=== PATIENT | female | born 1945 | race Caucasian/White ===

== ENCOUNTER 2018-08-05 19:04 | Inpatient (IN) | payer MEDICARE, BC ==
[2018-08-05] MEDS ORDERED: Ondansetron ODT 4 MG TAB PO PRN (21:53)
[2018-08-05] MEDS ORDERED: Ondansetron PF 4 MG/2 ML Vial IVP PRN (21:53)
[2018-08-05] MEDS ORDERED: Acetaminophen 650 MG Suppository PR PRN (21:53)
[2018-08-05] MEDS ORDERED: Acetaminophen 325 MG TAB PO PRN (21:53)
[2018-08-05 22:20] VITALS: BMI 23.3
[2018-08-05 22:31] LABS: Hemoglobin 12.4 g/dL (12.0-16.0)
[2018-08-05] MEDS: Pantoprazole 80 MG in Sodium Chloride 0.9% 100 ML IVP SCH (22:49)
--- NOTE | 2018-08-05 23:05 | HP ---
PRIMARY CARE PHYSICIAN: Not reported. CODE STATUS: Full code. TIME OF EVALUATION: 09:10 p.m. CHIEF COMPLAINT FOR THIS PATIENT: Vomiting up blood. HISTORY OF PRESENT ILLNESS: This is a 73-year-old female patient with past medical history of hypertension, alcohol abuse who came to the hospital after having episodes of vomiting today which the patient described as significant amount of blood, multiple times with no clear triggers, no alleviating factors. She reported that her last drink was three days ago. Symptoms were reported as severe by the patient's . REVIEW OF SYSTEMS: CONSTITUTIONAL: No fever, chills, or generalized weakness. RESPIRATORY: No cough, sputum production, or shortness of breath. CARDIOVASCULAR: No chest pain or palpitation. GASTROINTESTINAL: The patient has bloody vomiting multiple times during today. See HPI for details, no abdominal pain. No black stools. RESIDENCE DIRECTOR: No dizziness, headache, or feeling lightheaded. GENITOURINARY: No burning on urination. EXTREMITIES: No leg swelling. All other systems were reviewed and negative except for the findings mentioned above. PAST MEDICAL HISTORY: As mentioned in the HPI. SURGICAL HISTORY: Right hip surgery. FAMILY HISTORY: Reviewed, noncontributory to current presentation. PSYCH HISTORY: Anxiety. SOCIAL HISTORY: The patient drinks usually five drinks per day, almost everyday. KNOWN ALLERGIES: To sulfa. REPORTED MEDICATIONS: Unknown. PHYSICAL EXAMINATION: VITAL SIGNS: Blood pressure 158/98 with heart rate 88, respiratory rate was 16, temperature 97.9, pain was 5/10, oxygen saturation was 96% on room air. GENERAL APPEARANCE: The patient is alert, oriented, not in acute distress. HEENT: Eyes; normal conjunctivae. Moist oral mucosa. Anicteric. No JVD. RESPIRATORY: Bilateral air entry. No rales. No wheezes. Symmetric expansion. CARDIOVASCULAR: Normal rate. Regular rhythm. No murmurs. No gallop. No edema. ABDOMEN: Soft. Normal bowel sounds. MUSCULOSKELETAL: Baseline range of motion and strength. No tenderness. SKIN: Warm, intact. No pallor. No rash. No redness. Peripheral pulses are present. Capillary refill seems to be intact. NEUROLOGIC: No evidence of any new focal weakness. Cranial nerves seems to be intact. PSYCHIATRIC: The patient is in good mood. No anxiety. Optimal judgment. LABORATORY DATA: Labs were reviewed. The patient has a sodium level 142, potassium 3.4, chloride level 103, CO2 of 20, anion gap 22, glucose 167, BUN 12.9, creatinine 0.8. BUN creatinine ratio is 16, GFR 83. LFTs were negative. White count 15.28, hemoglobin 14, MCV 97.8, platelet count 145. ASSESSMENT AND PLAN: The patient will be placed in the hospital with following medical problems: 1. Acute gastrointestinal bleeding. The patient had multiple bloody vomiting today, unclear etiology. The patient is alcoholic, no prior taking any NSAIDs, could be an episode of Rosana-Vera. We will call the GI. We will follow recommendations. Given history of alcoholism, the patient might be offered EGD by GI. The patient will remain n.p.o. for now. We will monitor hemoglobin, we will transfuse as needed, hydration for hemodynamic stability, Protonix. 2. Chronic history of alcohol abuse. Discussed with the patient and counseled to stop drinking. It does not seem that the patient is ready for it. 3. Uncontrolled hypertension with systolic blood pressure 158. Reconcile home medications, we will adjust treatment as needed. We will not treat aggressively since the patient is a GI bleeder. 4. DVT prophylaxis. The patient will be on SCDs. Job ID: [id number] [facility]
[2018-08-06 06:06] LABS: Anion Gap 14 mmol/L (10-20); BUN (Urea Nitrogen) 8 mg/dL (9.8-20.1); Calc. Creatinine Clearance 76 mL/min (70-130); Calcium 8.4 mg/dL (7.8-10.44); Carbon Dioxide 25 mmol/L (23-31); Chloride 99 mmol/L (98-107); Estimated GFR-MDRD 90; Glucose 110 mg/dL (83-110); Potassium 3.4 mmol/L (3.5-5.1); Sodium 135 mmol/L (136-145)
[2018-08-06 06:50] LABS: #Eosinphils 0.1 thou/uL (0.0-0.7); #Lymphocytes 1.2 thou/uL (1.20-3.40); #Monocytes 0.8 thou/uL (0.11-0.59); #Neutrophils 7.2 thou/uL (1.40-6.50); %Basophils 0.1 % (0.0-1.0); %Eosinophils 0.7 % (0.0-10.0); %Lymphocytes 12.8 % (21.0-51.0); %Monocytes 8.9 % (0.0-10.0); %Neutrophils 77.5 % (42.0-75.0); Hemoglobin 12.2 g/dL (12.0-16.0); MDiff Complete? YES; Macrocytosis MODERATE=16-30 cells (100X) (0-5/hpf); Mean Corpuscular HGB CONC 35.2 g/dL (32.0-36.0); Mean Corpuscular Hemoglobin 36.1 pg (27.0-31.0); Mean Platelet Volume 7.9 fL (7.4-10.4); Platelet Count 93 thou/uL (130-400); Platelet Morphology Comment Appears Decreased; RBC Distribution Width 12.4 % (11.5-14.5); Red Blood Cell (RBC) Count 3.38 mill/uL (4.20-5.40); White Blood Cell (WBC) Count 9.3 thou/uL (4.8-10.8)
[2018-08-06] MEDS: Pantoprazole 80 MG in Sodium Chloride 0.9% 100 ML IVP SCH ×2 (08:14→18:25)
[2018-08-06] MEDS ORDERED: Loratadine 10 MG TAB PO PRN (08:20)
[2018-08-06] MEDS ORDERED: Senokot S 8.6-50 MG TAB PO PRN (08:20)
[2018-08-06] MEDS ORDERED: Cepastat Lozenges 1 LOZ PO PRN (08:20)
[2018-08-06] MEDS ORDERED: Zolpidem Tartrate 5 MG TAB PO PRN (08:20)
[2018-08-06] MEDS ORDERED: Diabetic Tussin 200 MG/10 ML UDCUP PO PRN (08:20)
[2018-08-06] MEDS ORDERED: Sodium Chloride 0.65% Nasal 44 ML BOT EA NARE PRN (08:20)
[2018-08-06] MEDS ORDERED: HYDROcodone/Acetaminophen 5/325 mg Tablet PO PRN (08:20)
[2018-08-06] MEDS ORDERED: Loperamide HCl 2 MG CAP PO PRN (08:20)
[2018-08-06] MEDS ORDERED: Bisacodyl 5 MG TAB PO PRN (08:20)
[2018-08-06] MEDS ORDERED: hydrALAZINE 20 MG/ML VIAL SLOW IVP PRN (08:20)
[2018-08-06] MEDS ORDERED: Multivitamins, Adult 10 ML, Folic Acid 1 MG, Thiamine HCl 100 MG in Dextrose 5 %-0.45 %... IV SCH (09:00)
--- NOTE | 2018-08-06 09:22 | ULT ---
Gallbladder ultrasound: Multiple grayscale images of right upper quadrant obtained according to protocol. INDICATION: Pain FINDINGS: Liver: Normal Gallbladder: Low-level echoes indicate gallbladder sludge Gallbladder wall: Normal. Leon's Sign: Negative Common bile duct is normal. Ascites: None IMPRESSION: Gallbladder sludge.
[2018-08-06 09:59] LABS: Hemoglobin 12.9 g/dL (12.0-16.0)
--- NOTE | 2018-08-06 11:03 | PDOC.PN ---
- Subjective Encounter Start Date: 08/06/18 Encounter Start Time: 15:00 -: old records requested/rev pt was taking diclofenac daily for about 1 year, denies any further episodes of vomiting Patient seen and examined. No new complaints. No overnight events - Objective Resuscitation Status - Order Detail: 08/05/18 21:53 Resuscitation Status Routine Resuscitation Status: FULL: Full Resuscitation MAR Reviewed: Yes Vital Signs & Weight: Vital Signs (12 hours) Temp Pulse Resp BP Pulse Ox 08/06/18 08:00 95 08/06/18 07:26 98.3 F 76 18 145/77 H 95 08/06/18 04:00 98.3 F 77 18 145/74 H 96 08/06/18 00:00 98.5 F 88 18 145/79 H 93 L 08/05/18 23:20 94 L Weight Weight 136 lb 4.8 oz I&O: 08/05/18 08/06/18 08/07/18 06:59 06:59 06:59 Intake Total 130 Balance 130 Result Diagrams: 08/06/18 15:28 08/06/18 05:06 Radiology Reviewed by me: Yes (US abdomen gall bladder sluge) Phys Exam - Physical Examination Constitutional: NAD HEENT: PERRLA, moist MMs, sclera anicteric Neck: no JVD, supple Respiratory: no wheezing, no rales, no rhonchi Cardiovascular: RRR, no significant murmur, no rub Gastrointestinal: soft, non-tender, no distention, positive bowel sounds Musculoskeletal: no edema, pulses present Neurological: non-focal, normal sensation, moves all 4 limbs Lymphatic: no nodes Psychiatric: normal affect, A&O x 3 Skin: no rash, normal turgor Dx/Plan (1) Acute GI bleeding Code(s): K92.2 - GASTROINTESTINAL HEMORRHAGE, UNSPECIFIED Status: Acute (2) Alcohol abuse Code(s): F10.10 - ALCOHOL ABUSE, UNCOMPLICATED Status: Chronic (3) Anxiety and depression Code(s): F41.9 - ANXIETY DISORDER, UNSPECIFIED; F32.9 - MAJOR DEPRESSIVE DISORDER, SINGLE EPISODE, UNSPECIFIED Status: Chronic (4) Hypertension Code(s): I10 - ESSENTIAL (PRIMARY) HYPERTENSION Status: Chronic (5) Macrocytosis Code(s): D75.89 - OTHER SPECIFIED DISEASES OF BLOOD AND BLOOD-FORMING ORGANS Status: Chronic (6) Thrombocytopenia Code(s): D69.6 - THROMBOCYTOPENIA, UNSPECIFIED Status: Chronic - Plan cont current plan of care, plan discussed w/ family * continue protonix drip * start banana bag * GI consulted * home meds reconciled * get US RUQ * medication reviewed as below * symptomatic treatment. Review of Systems - Review of Systems ENT: negative: Ear Pain, Ear Discharge, Nose Pain, Nose Discharge, Nose Congestion, Mouth Pain, Mouth Swelling, Throat Pain, Throat Swelling, Other Respiratory: negative: Cough, Dry, Shortness of Breath, Hemoptysis, SOB with Excertion, Pleuritic Pain, Sputum, Wheezing Cardiovascular: negative: chest pain, palpitations, orthopnea, paroxysmal nocturnal dyspnea, edema, light headedness, other Gastrointestinal: negative: Nausea, Vomiting, Abdominal Pain, Diarrhea, Constipation, Melena, Hematochezia, Other Genitourinary: negative: Dysuria, Frequency, Incontinence, Hematuria, Retention , Other Musculoskeletal: negative: Neck Pain, Shoulder Pain, Arm Pain, Back Pain, Hand Pain, Leg Pain, Foot Pain, Other - Medications/Allergies Allergies/Adverse Reactions: Allergies Allergy/AdvReac Type Severity Reaction Status Date / Time Sulfa (Sulfonamide Allergy Unverified 08/05/18 22:00 Antibiotics) Medications: Current Medications Acetaminophen (Tylenol) 650 mg PO Q4H PRN PRN Reason: Headache/Fever/Mild Pain (1-3) Acetaminophen (Tylenol) 650 mg [place] Q4H PRN PRN Reason: Headache/Fever/Mild Pain (1-3) Hydrocodone Bitart/Acetaminophen ([place] 5/325) 1 tab PO Q4H PRN PRN Reason: Moderate Pain (4-6) Bisacodyl (Dulcolax) 10 mg PO DAILYPRN PRN PRN Reason: Constipation Guaifenesin (Robitussin Sf) 200 mg PO Q4H PRN PRN Reason: Cough Hydralazine HCl (Apresoline) 10 mg SLOW IVP Q4H PRN PRN Reason: SBP > 180 and HR < 70 Pantoprazole Sodium 80 mg/ (Sodium Chloride) 100 mls @ 10 mls/hr IVP INF [facility] Last Admin: 08/06/18 08:14 Dose: 100 mls Multivitamins 10 ml/ Folic Acid 1 mg/ Thiamine HCl 100 mg / Dextrose/Sodium Chloride 1,011.2 mls @ 125 mls/hr IV Q24HR [facility] Loperamide HCl (Imodium) 2 mg PO PRN PRN PRN Reason: Diarrhea/Loose Stools Loratadine (Claritin) 10 mg PO DAILYPRN PRN PRN Reason: Sinus Symptoms Ondansetron HCl (Zofran Odt) 4 mg PO Q6H PRN PRN Reason: Nausea/Vomiting Ondansetron HCl (Zofran) 4 mg IVP Q6H PRN PRN Reason: Nausea/Vomiting Senna/Docusate Sodium (Senokot S) 2 tab PO BID PRN PRN Reason: Constipation Sertraline HCl (Zoloft) 25 mg PO HS [facility] Sodium Chloride ([place] Nasal [place] 0.65%) 0 ml EA NARE QIDPRN PRN PRN Reason: Nasal Congestion Sodium Chloride (Flush - Normal Saline) 10 ml IVF Q12HR [facility] Sodium Chloride (Flush - Normal Saline) 10 ml IVF PRN PRN PRN Reason: Saline Flush Throat Lozenges (Cepastat Lozenges) 1 dean PO Q2H PRN PRN Reason: Sore Throat Zolpidem Tartrate (Ambien) 5 mg PO HSPRN PRN PRN Reason: Insomnia
[2018-08-06 15:42] LABS: Hemoglobin 12.5 g/dL (12.0-16.0)
[2018-08-06] MEDS ORDERED: Ketamine 50 MG/ML (10ML VIAL) ONE (20:16)
[2018-08-06] MEDS ORDERED: Metoprolol Tartrate 5 MG/5 ML VIAL ONE (20:49)
[2018-08-06] MEDS ORDERED: Promethazine HCl 25 MG/ML VIAL IM PRN (20:51)
[2018-08-06] MEDS ORDERED: Ondansetron HCl/PF 4 MG/2 ML Vial IVP PRN (20:51)
[2018-08-06] MEDS ORDERED: Promethazine HCl 25 MG/ML VIAL SLOW IVP PRN (20:51)
--- NOTE | 2018-08-07 01:29 | OP ---
DATE OF PROCEDURE: 08/06/2018 OPERATIVE PROCEDURE: 1. Esophagogastroduodenoscopy with biopsy. 2. Injection of epinephrine over the biopsy site to stop the bleeding. PREOPERATIVE DIAGNOSES: Hematemesis, upper gastrointestinal bleeding. POSTOPERATIVE DIAGNOSES: 1. Hiatus hernia. 2. Ulcer and possibly a tear of the GE junction indicative of active bleeding seen. 3. Gastric mucosa, diffuse hyperemia, edematous. 4. Small ulcer in the bulb. DESCRIPTION OF PROCEDURE: The patient was placed on her left lateral position and was given sedation by Anesthesia Department. A Pentax video gastroscope under direct vision passed down the oropharynx, past the GE junction into the stomach. The esophageal mucosa appeared normal. The patient had a small hiatus hernia. At the GE junction, on the gastric side, the patient had ulceration and possibly what appeared to be a tear. There was no active bleeding seen. Fundus and cardia, no pathology. The gastric antrum and body shows mucosal hyperemia and edema. Biopsy was obtained of the gastric antrum and gastric body. Interestingly, after the biopsy, the biopsy site over the gastric body started having persistent oozing of blood. Water was irrigated and washed out; however, the bleeding continued. Because of the above reason, injection of epinephrine 2 mL was done at the biopsy site with control of bleeding. The gastric incisura, no pathology seen. The duodenal bulb shows small ulceration. The descending duodenum, no pathology seen. The stomach was decompressed and the scope was removed. RECOMMENDATIONS: 1. Clear liquid diet. 2. Follow up H and H. 3. Continue PPI. 4. If she has no recurrence of bleeding, consider advancing her diet tomorrow. Job ID: [id number]
[2018-08-07 06:01] LABS: #Eosinphils 0.1 thou/uL (0.0-0.7); #Lymphocytes 1.5 thou/uL (1.20-3.40); #Monocytes 0.8 thou/uL (0.11-0.59); #Neutrophils 5.7 thou/uL (1.40-6.50); %Basophils 0.2 % (0.0-1.0); %Eosinophils 0.9 % (0.0-10.0); %Lymphocytes 18.5 % (21.0-51.0); %Monocytes 9.9 % (0.0-10.0); %Neutrophils 70.5 % (42.0-75.0); Hemoglobin 12.6 g/dL (12.0-16.0); Mean Corpuscular HGB CONC 35.8 g/dL (32.0-36.0); Mean Corpuscular Hemoglobin 36.6 pg (27.0-31.0); Mean Platelet Volume 8.1 fL (7.4-10.4); Platelet Count 98 thou/uL (130-400); RBC Distribution Width 12.1 % (11.5-14.5); Red Blood Cell (RBC) Count 3.45 mill/uL (4.20-5.40); White Blood Cell (WBC) Count 8.1 thou/uL (4.8-10.8)
[2018-08-07 06:16] LABS: ALT (SGPT) 20 U/L (8-55); AST (SGOT) 51 U/L (5-34); Alkaline Phosphatase 92 U/L (40-150); Bilirubin, Direct 1.2 mg/dL (0.1-0.3); Bilirubin, Total 2.6 mg/dL (0.2-1.2); Protein, Total 7.1 g/dL (6.0-8.3)
[2018-08-07 06:17] LABS: ALT (SGPT) 20 U/L (8-55); AST (SGOT) 50 U/L (5-34); Alkaline Phosphatase 92 U/L (40-150); Anion Gap 15 mmol/L (10-20); BUN (Urea Nitrogen) 7 mg/dL (9.8-20.1); Bilirubin, Total 2.6 mg/dL (0.2-1.2); Calc. Creatinine Clearance 71 mL/min (70-130); Calcium 8.7 mg/dL (7.8-10.44); Carbon Dioxide 26 mmol/L (23-31); Chloride 99 mmol/L (98-107); Estimated GFR-MDRD 82; Glucose 89 mg/dL (83-110); Sodium 137 mmol/L (136-145)
[2018-08-07 06:23] LABS: Potassium 2.8 mmol/L (3.5-5.1)
[2018-08-07] MEDS ORDERED: Potassium Chloride 20 MEQ TAB PO SCH ×3 (06:45→10:45)
[2018-08-07] MEDS: Pantoprazole 80 MG in Sodium Chloride 0.9% 100 ML IVP SCH (07:38)
[2018-08-07 08:10] LABS: Magnesium 1.1 mg/dL (1.6-2.6)
[2018-08-07] MEDS: Thiamine 100 MG TAB PO SCH (08:40)
[2018-08-07] MEDS: Cyanocobalamin (Vitamin B-12) 1,000 MCG TAB PO SCH (08:40)
[2018-08-07] MEDS: Folic Acid 1 MG TAB PO SCH (08:40)
--- NOTE | 2018-08-07 10:24 | PRG ---
DATE OF SERVICE: 08/07/2018 SUBJECTIVE: This is a 73-year-old female with history of alcohol abuse, hospitalized 2 days ago with hematemesis. She underwent EGD last night and was found to have hiatus hernia, and also at GE junction, possible Rosana-Vera tear and an ulcer in the duodenal bulb. The patient done well overnight. She is tolerating clear liquid diet. No abdominal pain. No nausea or vomiting. Blood count has actually went stable. LABORATORY DATA: Shows WBC 8100, hemoglobin is 12.6, hematocrit is 35.3, MCV is 102. She offers no complaints. PHYSICAL EXAMINATION: VITAL SIGNS: Afebrile. Pulse is 91, blood pressure is 150/88. CARDIOVASCULAR: First and second heart sounds heard. LUNGS: Clear to auscultation. ABDOMEN: Soft. No organomegaly. No tenderness. No masses. RECOMMENDATIONS: 1. Advance regular diet. 2. If she does well, consider discharge home tomorrow on Protonix. The patient will come back to me as outpatient for a colonoscopy in the next few weeks. She is also advised strongly to stop drinking completely. Job ID: [id number]
[2018-08-07] MEDS ORDERED: Magnesium Sulfate 4 GM in Sodium Chloride 0.9% 250 ML 250 ML IVPB SCH (11:00)
[2018-08-07] MEDS ORDERED: Potassium Phosphate 15 MMOL in Sodium Chloride 0.9% 250 ML 250 ML IVPB SCH (11:00)
--- NOTE | 2018-08-07 11:05 | PDOC.PN ---
- Subjective Encounter Start Date: 08/07/18 Encounter Start Time: 09:45 Patient seen and examined. No new complaints. No overnight events - Objective Resuscitation Status - Order Detail: 08/05/18 21:53 Resuscitation Status Routine Resuscitation Status: FULL: Full Resuscitation MAR Reviewed: Yes Vital Signs & Weight: Vital Signs (12 hours) Temp Pulse Resp BP Pulse Ox 08/07/18 07:08 98.6 F 91 16 150/88 H 95 08/07/18 04:00 98.8 F 93 20 126/80 99 08/07/18 01:14 99.1 F 83 20 127/73 93 L Weight Weight 136 lb 4.8 oz I&O: 08/06/18 08/07/18 08/08/18 06:59 06:59 06:59 Intake Total 130 Balance 130 Result Diagrams: 08/07/18 05:17 08/07/18 05:17 Phys Exam - Physical Examination Constitutional: NAD HEENT: PERRLA, moist MMs, sclera anicteric Neck: no JVD, supple Respiratory: no wheezing, no rales, no rhonchi Cardiovascular: RRR, no significant murmur, no rub Gastrointestinal: soft, non-tender, no distention, positive bowel sounds Musculoskeletal: no edema, pulses present Neurological: non-focal, normal sensation, moves all 4 limbs Lymphatic: no nodes Psychiatric: normal affect, A&O x 3 Skin: no rash, normal turgor Dx/Plan (1) Acute GI bleeding Code(s): K92.2 - GASTROINTESTINAL HEMORRHAGE, UNSPECIFIED Status: Acute (2) Alcohol abuse Code(s): F10.10 - ALCOHOL ABUSE, UNCOMPLICATED Status: Chronic (3) Anxiety and depression Code(s): F41.9 - ANXIETY DISORDER, UNSPECIFIED; F32.9 - MAJOR DEPRESSIVE DISORDER, SINGLE EPISODE, UNSPECIFIED Status: Chronic (4) Hypertension Code(s): I10 - ESSENTIAL (PRIMARY) HYPERTENSION Status: Chronic (5) Macrocytosis Code(s): D75.89 - OTHER SPECIFIED DISEASES OF BLOOD AND BLOOD-FORMING ORGANS Status: Chronic (6) Thrombocytopenia Code(s): D69.6 - THROMBOCYTOPENIA, UNSPECIFIED Status: Chronic (7) Hypophosphatemia Code(s): E83.39 - OTHER DISORDERS OF PHOSPHORUS METABOLISM Status: Acute (8) Hypomagnesemia Code(s): E83.42 - HYPOMAGNESEMIA Status: Acute (9) Hypokalemia Code(s): E87.6 - HYPOKALEMIA Status: Acute - Plan cont current plan of care * continue Protonix * advance diet * replace potassium phosphate, magnesium sulfate and potassium chloride * repeat labs tomorrow * plan for discharge tomorrow * medication reviewed as below * symptomatic treatment. * advised to avoid NSAIDs and alcohol Review of Systems - Review of Systems ENT: negative: Ear Pain, Ear Discharge, Nose Pain, Nose Discharge, Nose Congestion, Mouth Pain, Mouth Swelling, Throat Pain, Throat Swelling, Other Respiratory: negative: Cough, Dry, Shortness of Breath, Hemoptysis, SOB with Excertion, Pleuritic Pain, Sputum, Wheezing Cardiovascular: negative: chest pain, palpitations, orthopnea, paroxysmal nocturnal dyspnea, edema, light headedness, other Gastrointestinal: negative: Nausea, Vomiting, Abdominal Pain, Diarrhea, Constipation, Melena, Hematochezia, Other Genitourinary: negative: Dysuria, Frequency, Incontinence, Hematuria, Retention , Other Musculoskeletal: negative: Neck Pain, Shoulder Pain, Arm Pain, Back Pain, Hand Pain, Leg Pain, Foot Pain, Other Skin: negative: Rash, Lesions, Pato, Bruising, Other - Medications/Allergies Allergies/Adverse Reactions: Allergies Allergy/AdvReac Type Severity Reaction Status Date / Time Sulfa (Sulfonamide Allergy Unverified 08/05/18 22:00 Antibiotics) Medications: Current Medications Acetaminophen (Tylenol) 650 mg PO Q4H PRN PRN Reason: Headache/Fever/Mild Pain (1-3) Acetaminophen (Tylenol) 650 mg [place] Q4H PRN PRN Reason: Headache/Fever/Mild Pain (1-3) Hydrocodone Bitart/Acetaminophen ([place] 5/325) 1 tab PO Q4H PRN PRN Reason: Moderate Pain (4-6) Bisacodyl (Dulcolax) 10 mg PO DAILYPRN PRN PRN Reason: Constipation Cyanocobalamin (Vitamin B-12) 1,000 mcg PO DAILY [facility] Last Admin: 08/07/18 08:40 Dose: 1,000 mcg Folic Acid (Folvite) 1 mg PO DAILY [facility] Last Admin: 08/07/18 08:40 Dose: 1 mg Guaifenesin (Robitussin Sf) 200 mg PO Q4H PRN PRN Reason: Cough Hydralazine HCl (Apresoline) 10 mg SLOW IVP Q4H PRN PRN Reason: SBP > 180 and HR < 70 Pantoprazole Sodium 80 mg/ (Sodium Chloride) 100 mls @ 10 mls/hr IVP INF [facility] Last Admin: 08/07/18 07:38 Dose: 100 mls Magnesium Sulfate 4 gm/ Sodium (Chloride) 258 mls @ 86 mls/hr IVPB 1100 [facility] Stop: 08/07/18 13:59 Potassium Phosphate 15 mmol/ (Sodium Chloride) 255 mls @ 62.5 mls/hr IVPB 1100 [facility] Loperamide HCl (Imodium) 2 mg PO PRN PRN PRN Reason: Diarrhea/Loose Stools Loratadine (Claritin) 10 mg PO DAILYPRN PRN PRN Reason: Sinus Symptoms Ondansetron HCl (Zofran Odt) 4 mg PO Q6H PRN PRN Reason: Nausea/Vomiting Ondansetron HCl (Zofran) 4 mg IVP Q6H PRN PRN Reason: Nausea/Vomiting Potassium Chloride ([place]) 40 meq PO 0945 [facility] Stop: 08/07/18 11:45 Last Admin: 08/07/18 08:39 Dose: 40 meq Senna/Docusate Sodium (Senokot S) 2 tab PO BID PRN PRN Reason: Constipation Sertraline HCl (Zoloft) 25 mg PO HS [facility] Last Admin: 08/06/18 22:35 Dose: 25 mg Sodium Chloride ([place] Nasal [place] 0.65%) 0 ml EA NARE QIDPRN PRN PRN Reason: Nasal Congestion Sodium Chloride (Flush - Normal Saline) 10 ml IVF Q12HR [facility] Last Admin: 08/07/18 08:34 Dose: Not Given Sodium Chloride (Flush - Normal Saline) 10 ml IVF PRN PRN PRN Reason: Saline Flush Thiamine HCl (Thiamine) 100 mg PO DAILY [facility] Last Admin: 08/07/18 08:40 Dose: 100 mg Throat Lozenges (Cepastat Lozenges) 1 dean PO Q2H PRN PRN Reason: Sore Throat Zolpidem Tartrate (Ambien) 5 mg PO HSPRN PRN PRN Reason: Insomnia
[2018-08-08 05:45] LABS: #Eosinphils 0.2 thou/uL (0.0-0.7); #Lymphocytes 1.5 thou/uL (1.20-3.40); #Monocytes 0.7 thou/uL (0.11-0.59); #Neutrophils 3.2 thou/uL (1.40-6.50); %Basophils 0.6 % (0.0-1.0); %Eosinophils 3.4 % (0.0-10.0); %Lymphocytes 27.3 % (21.0-51.0); %Monocytes 11.9 % (0.0-10.0); %Neutrophils 56.8 % (42.0-75.0); Hemoglobin 12.9 g/dL (12.0-16.0); Mean Corpuscular HGB CONC 36.3 g/dL (32.0-36.0); Mean Corpuscular Hemoglobin 37.5 pg (27.0-31.0); Mean Platelet Volume 8.1 fL (7.4-10.4); Platelet Count 91 thou/uL (130-400); RBC Distribution Width 12.4 % (11.5-14.5); Red Blood Cell (RBC) Count 3.45 mill/uL (4.20-5.40); White Blood Cell (WBC) Count 5.7 thou/uL (4.8-10.8)
[2018-08-08 06:08] LABS: Anion Gap 13 mmol/L (10-20); BUN (Urea Nitrogen) 9 mg/dL (9.8-20.1); Calc. Creatinine Clearance 68 mL/min (70-130); Calcium 8.9 mg/dL (7.8-10.44); Carbon Dioxide 27 mmol/L (23-31); Chloride 102 mmol/L (98-107); Estimated GFR-MDRD 78; Glucose 97 mg/dL (83-110); Magnesium 2.1 mg/dL (1.6-2.6); Phosphorus 2.7 mg/dL (2.3-4.7); Potassium 3.6 mmol/L (3.5-5.1); Sodium 138 mmol/L (136-145)
[2018-08-08] MEDS: Thiamine 100 MG TAB PO SCH (08:43)
[2018-08-08] MEDS: Folic Acid 1 MG TAB PO SCH (08:43)
[2018-08-08] MEDS: Cyanocobalamin (Vitamin B-12) 1,000 MCG TAB PO SCH (08:44)
[2018-08-08 10:26] VITALS: BP 112/73; TEMP 98.3
--- NOTE | 2018-08-08 11:11 | DIS ---
DATE OF ADMISSION: 08/05/2018 DATE OF DISCHARGE: 08/08/2018 PRIMARY CARE PHYSICIAN: Dr. Leila Schmidt. DISCHARGE DISPOSITION: Home. PRIMARY DISCHARGE DIAGNOSES: 1. Acute upper gastrointestinal bleeding. 2. Hypokalemia. 3. Hypomagnesemia. 4. Hypophosphatemia. 5. Peptic ulcer disease. SECONDARY DISCHARGE DIAGNOSES: Thrombocytopenia, macrocytosis, hypertension, anxiety and depression, alcohol abuse. PRIMARY PROCEDURE/OPERATION: Upper endoscopy was performed by Dr. Rivers and found with ulcer at the gastroesophageal junction, gastritis and duodenal bulb ulcer. RADIOLOGICAL INVESTIGATION: Abdominal ultrasound showed unremarkable finding. SIGNIFICANT LABORATORY DATA: Hemoglobin 12.9, platelet 91, WBC 5.7. Sodium 138, creatinine 0.73. Electrolytes normal. DISCHARGE MEDICATIONS: 1. Protonix 40 mg p.o. daily. 2. Zoloft 25 mg p.o. at bedtime. 3. Vitamin B12 1000 mcg p.o. daily. 4. Folic acid 1 mg p.o. daily. 5. Thiamine 100 mg p.o. daily. CONTRAINDICATION: None. CODE STATUS: Full code. INPATIENT WHITE METAL CORROSION PROOFER: Dr. Rivers. TEST RESULTS PENDING ON DISCHARGE: None. ALLERGIES: SULFA DRUGS. DISCHARGE PLAN: Post hospital, the patient will follow up with primary care physician in one week. HOSPITAL COURSE: A 73-year-old female with above-mentioned medical problem, who was admitted by Dr. Dumont, please see his H and P for further details. The patient was having upper GI bleed. She was taking diclofenac for her arthritis for a period of time that was contributing to her peptic ulcer disease, which was found on upper endoscopy, which was performed by Dr. Rivers. She did not have any blood loss anemia. She had abnormal electrolytes that was replaced and corrected. She is hemodynamically stable. I have seen and examined the patient at bedside today. PHYSICAL EXAMINATION: VITAL SIGNS: Currently, temperature 98.4, pulse 70, respiratory rate 18, saturation 95% on room air, blood pressure 138/86, weight 136 pounds. GENERAL: The patient is currently alert and oriented, no acute distress. HEENT: Head, normocephalic and atraumatic. LUNGS: Clear to auscultation without any rhonchi or rales. CARDIAC: S1, S2. Regular without any murmur. ABDOMEN: Soft and benign without any tenderness. EXTREMITIES: No edema. NEUROLOGIC: Nonfocal examination. I have given the patient education about avoidance of NSAID as well as alcohol abuse on discharge. Plan of care discussed with the patient and her . The patient is medically stable for discharge. All new medication prescription sent to her pharmacy. Job ID: [id number]
--- NOTE | 2018-08-08 11:16 | PRG ---
DATE OF SERVICE: 08/08/2018 SUBJECTIVE: Ms. Jeanie Walker is a very pleasant 73-year-old female, hospitalized about 3 days ago with nausea, vomiting, and hematemesis. She underwent EGD and was found to have ulceration of the GE junction and also ulcer in the duodenal bulb. She had done well over the last 48 hours. She has no abdominal pain. No nausea or vomiting. She is tolerating diet. Blood count has been pretty stable. OBJECTIVE: GENERAL: Appears very comfortable. VITAL SIGNS: Very stable. Afebrile. Pulse is 70. Blood pressure 130/66. CARDIOVASCULAR: First and second heart sounds heard. LUNGS: Clear to auscultation. ABDOMEN: Soft. No organomegaly. No tenderness. No masses. LABORATORY DATA: From this morning; WBC 5500, hemoglobin 12.9, hematocrit 35.7, MCV 103, platelet count 91,000. IMPRESSION: 1. Gastrointestinal bleeding. 2. Ulcer of the gastroesophageal junction and also an ulcer in the duodenal bulb. 3. Chronic alcohol abuse. RECOMMENDATIONS: 1. We will discharge home on Protonix 40 once a day. 2. She is advised to stop drinking completely and not to take any Aleve or any NSAID medications and also any aspirin. She is advised to take Tylenol as needed for some arthritic pain. The patient will come back to me in 3 weeks for followup visit. We will plan for an outpatient colonoscopy in the near future. Job ID: [id number]
--- NOTE | 2018-08-09 08:38 | CON ---
DATE OF CONSULTATION: 08/06/2018 REASON FOR CONSULTATION: GI hemorrhage. HISTORY OF PRESENT ILLNESS: Ms. Jeanie Walker is a very pleasant 73-year-old female, hospitalized yesterday with hematochezia. The patient with hypertension and was on clonidine until recently. Apparently, blood pressure is running okay and was advised to stop the clonidine. The patient has a history of chronic back pain and arthralgias and takes diclofenac twice a day. She also takes occasional aspirin. The patient felt sick to her stomach suddenly and was throwing up. She is not having the abdominal pain or anything. She has occasional heartburn, hematemesis. The bleeding was actually painless. She says she vomited several times of fresh blood, there were also some blood loss. She does not have any dizziness or syncope. The patient had no similar episodes in the past. The patient had stool yesterday, which was somewhat black. She . Her bowel movements are fairly regular. No prior history of any GI bleeding. The patient has no past medical history of liver disease or any ulcer disease. The patient does drink at least 4-5 drinks every day. She says she was doing a lot more than before because her dog for 15 years diet a while ago. Although, she has history of vomiting a large amount of blood. Her blood count is actually very stable. The admitting hemoglobin was 12.4 and hematocrit 34.8. Today, the same thing yesterday, hemoglobin 12.3, hematocrit 34.7. The MCV is 103, most likely from alcohol intake. No other relevant symptoms. Although, she is 73 years old. She has never had a colonoscopy for colon cancer. ALLERGIES: SULFA. SOCIAL HISTORY: The patient is . She smokes 5 to 6 cigarettes every day. No history of any drug use. History of alcohol intake may be 4 or 5 drinks every day and she has been drinking a lot more than before. MEDICAL ILLNESSES: 1. Hypertension, on medical therapy until recently. 2. Chronic back pain and is on diclofenac. SURGERIES: 1. Partial hysterectomy. 2. Right hip replacement 2 years ago. No other surgeries. FAMILY HISTORY: Mother, breast cancer. Brother, brain cancer. Uncle, lung cancer. Grandfather, liver cancer. Father had hypertension. No family history of any heart disease, stroke, or diabetes, etc. MEDICATIONS: List includes; 1. Diclofenac. 2. Sertraline 25 mg once a day. 3. She was taking clonidine before, which was stopped. REVIEW OF SYSTEMS: Ten point system review: HEAD: No headache. No syncope. EENT: Eyes; no impaired vision. Ears; no ear pain or bleeding. Throat; no sore throat, no dysphagia. NECK: No neck stiffness or pain. LUNGS: No chronic coughing. No hemoptysis. No dyspnea. CARDIOVASCULAR SYSTEM: No chest pain. No palpitation. No dyspnea, orthopnea, or PND. GI: As in history of present illness. : No dysuria or hematuria. MUSCULOSKELETAL: History of back pain and arthralgias. NEUROPSYCHIATRIC: Nonrelevant. PHYSICAL EXAMINATION: GENERAL: The patient appears very comfortable. She is thin built. She is awake, alert, and oriented to time, place, and person. VITAL SIGNS: Afebrile, pulse is 76, and blood pressure 145/77. HEENT: Conjunctivae clear. NECK: Supple. No adenitis or thyromegaly. CARDIOVASCULAR SYSTEM: First and second heart sounds heard. LUNGS: Clear to auscultation. GI: Abdomen is soft. Abdomen is nondistended. Abdomen is nontender. There is no organomegaly or masses. Bowel sounds normal. EXTREMITIES: Reveal no edema. CENTRAL NERVOUS SYSTEM: Within normal limits. LABORATORY DATA: The most recent lab data: WBC 9300, hemoglobin 12.2, hematocrit 35.7, MCV 103, and platelet count is 93,000. Chemistry panel; sodium 135, potassium 3.4, chloride 95, bicarb 25, BUN is 8, creatinine 0.65, glucose 110, and calcium 8.4. She had abdominal sonogram done today, which shows normal liver, gallbladder sludge, and renal lithiasis. CLINICAL IMPRESSION: 1. A 73-year-old female with hematemesis, most likely she had gastrointestinal bleeding from ulcer disease. The patient takes diclofenac for the last 1 year. Interestingly, no evidence of any abdominal pain, no heartburn, no indigestion. Based on the history, I believe she most likely has bleeding ulcer. It is also possible that she could have underlying liver disease and possibly have varicosities. in favor of chronic liver disease history of liver cirrhosis. 2. Hypertension. 3. Alcohol abuse. 4. Right hip replacement. 5. Partial hysterectomy. RECOMMENDATIONS: 1. Continue IV PPI. 2. Serial hemoglobin and hematocrit. 3. EGD later on today and make further recommendation after EGD. Job ID: [id number]
== END 2018-08-08 11:02 | disposition home or self-care (01) | DRG 379 ==
LOC: ERS 19:04 → T4-A 20:23
PROVIDERS: ADMIT Hospitalist; ATTEND Hospitalist
PROC: 0DB78ZX Excision of Stomach, Pylorus, Via Natural or Artificial Opening Endoscopic, Diagnostic (ICD-10-PCS; principal; 2018-08-06)
PROC: 0W3P8ZZ Control Bleeding in Gastrointestinal Tract, Via Natural or Artificial Opening Endoscopic (ICD-10-PCS; 2018-08-06)
DX: K26.0 Acute duodenal ulcer with hemorrhage (principal); K25.0 Acute gastric ulcer with hemorrhage; I10 Essential (primary) hypertension; F10.10 Alcohol abuse, uncomplicated; F41.9 Anxiety disorder, unspecified; D75.89 Other specified diseases of blood and blood-forming organs; K44.9 Diaphragmatic hernia without obstruction or gangrene; D69.6 Thrombocytopenia, unspecified; E83.39 Other disorders of phosphorus metabolism; E83.42 Hypomagnesemia; E87.6 Hypokalemia; Z88.2 Allergy status to sulfonamides
CPT/HCPCS: 36415; 76705; 80048; 80053; 83735; 84100; 85014; 85018; 85025; 99285; C9113; J3411; J3475; J3490; J7042; J7050